=== PATIENT | female | born 1960 | race Caucasian/White ===

== ENCOUNTER 2016-12-24 11:21 | Day surgery (SDC) | payer BC ==
[~2016-12-24] VITALS: Ht 160 cm; Wt 54.8 kg
[2016-12-24] VITALS (8 sets, daily range): BP systolic 140–169; BP diastolic 73–122; PULSE 55–99; TEMP 97.7–98.2
[2016-12-24] MEDS ORDERED: ROXICODONE 55 MG/TAB PO (12:20)
[2016-12-24] MEDS ORDERED: FLOMAX 0.40.4 MG/CAP PO (12:20)
[2016-12-24] MEDS ORDERED: SUDAFED30 MG PO (12:21)
[2016-12-24] MEDS ORDERED: ZOFRAN 4MG T4 MG/TAB PO (12:21)
== END 2016-12-24 17:31 | disposition home or self-care (01) ==
LOC: SDCO 11:21
DX: C24.1 Malignant neoplasm of ampulla of Vater (principal); K83.8 Other specified diseases of biliary tract; K31.9 Disease of stomach and duodenum, unspecified; K83.1 Obstruction of bile duct
CPT/HCPCS: C1769; C2625; J2704; J7030; Q9967

== ENCOUNTER → 2017-01-26 | Outpatient (REF) ==
[~2017-01-26] MED LIST: FLOMAX 0.40.4 MG/CAP PO; ROXICODONE 55 MG/TAB PO; SUDAFED30 MG PO; ZOFRAN 4MG T4 MG/TAB PO
== END ==
LOC: ZAIV 01-25 06:20
DX: Z02.89 Encounter for other administrative examinations (principal)

== ENCOUNTER 2017-01-28 10:00 | Outpatient (RCR) | payer BC ==
[2017-01-24 07:56] VITALS: BP 108/87; PULSE 65; TEMP 98.4
[2017-01-25 09:05] VITALS: BP 108/52; PULSE 56; TEMP 98.1
[~2017-01-28] VITALS: Ht 160 cm; Wt 54.0 kg
[2017-01-28 10:03] VITALS: BP 125/58; PULSE 48
[2017-01-28 10:27] LABS: ADD PATHOLOGY DIFF REVIEW NO
[2017-01-28 10:33] LABS: MEAN CELL VOLUME 92 fl (80.0-100.0); MEAN CORPUSCULAR HGB CONC 33 g/dl (33.0-37.0); MEAN PLATELET VOLUME 10.1 fl (7.4-10.4); PLATELET COUNT 232 K/mm3 (130-400); RED BLOOD COUNT 3.64 M/mm3 (4.10-5.30); WHITE BLOOD COUNT 6.2 K/mm3 (4.8-10.8)
[2017-01-28 10:34] LABS: HEMATOCRIT 33.5 % (37.0-47.0); HEMOGLOBIN 11.1 g/dl (12.5-16.0); MEAN CORPUSCULAR HEMOGLOBIN 30 pg (27.0-31.0)
[2017-01-28 10:47] LABS: ADJUSTED CALCIUM 8.3 mg/dL (8.4-10.2); ALBUMIN 3.7 gm/dL (3.5-5.0); BILIRUBIN,TOTAL 0.6 mg/dL (0.0-1.0); CALCIUM 8.1 mg/dL (8.4-10.2); CREATININE, serum 0.52 mg/dL (0.52-1.25); POTASSIUM 3.1 mmol/L (3.4-5.0); TOTAL PROTEIN 6.3 gm/dL (6.4-8.2)
[2017-01-28 11:03] LABS: BAND 8 % (0-10); LYMPHOCYTE 26 % (20.0-51.0); NEUTROPHILS 65 % (42.0-75.2); PLATELET ESTIMATE NORMAL (NORMAL); TOTAL CELLS COUNTED 100
== END 2017-04-24 ==
LOC: EUO
PROVIDERS: Internal Medicine
DX: C7A.1 Malignant poorly differentiated neuroendocrine tumors (principal); Z95.828 Presence of other vascular implants and grafts
CPT/HCPCS: C1751; J1644

== ENCOUNTER 2018-04-21 21:24 | Emergency (ER) | payer BC ==
[~2018-04-21] VITALS: Ht 157.5 cm; Wt 48.2 kg
[2018-04-21 21:28] VITALS: TEMP 97.1
[2018-04-21 21:56] LABS: BASO % 0.5 % (0.0-2.0); EOS # 0.1 (0.0-0.7); EOS % 0.8 % (0-4.0); GRAN # 5.4 (1.4-6.5); GRAN % 80.6 % (42.2-75.2); LYMPH # 0.8 (1.2-3.4); LYMPH % 11.3 % (20.0-51.0); MEAN CELL VOLUME 92 fl (80.0-100.0); MEAN CORPUSCULAR HEMOGLOBIN 31 pg (27.0-31.0); MEAN CORPUSCULAR HGB CONC 33 g/dl (33.0-37.0); MEAN PLATELET VOLUME 9.7 fl (7.4-10.4); MONO # 0.4 (0.1-0.6); MONO % 6.3 % (1.7-9.3); PLATELET COUNT 287 K/mm3 (130-400); RED BLOOD COUNT 3.61 M/mm3 (4.10-5.30); REDCELL DISTRIBUTION WIDTH-CV 12.7 % (11.5-14.5)
[2018-04-21 22:02] LABS: HEMATOCRIT 33.1 % (37.0-47.0)
[2018-04-21] MEDS ORDERED: [UNRECOGNIZED DRUG - CODE] PO (22:07)
[2018-04-21] MEDS ORDERED: ULTRAM 50MG TAB50 MG PO (22:08)
[2018-04-21] MEDS ORDERED: ANTI-DIARRHEAL2 MG PO (22:09)
[2018-04-21] MEDS ORDERED: FLEXERIL 1010 MG/TAB PO (22:09)
[2018-04-21 22:10] LABS: ALANINE AMINOTRANSFERASE 76 U/L (9-52); ALKALINE PHOSPHATASE 137 U/L (50-136); ANION GAP 9 mmol/L (7-16); AST,SGOT 56 U/L (15-37); BILIRUBIN,TOTAL 0.5 mg/dL (0.0-1.0); BLOOD UREA NITROGEN 9 mg/dL (7-17); CALCIUM 9.2 mg/dL (8.4-10.2); CARBON DIOXIDE 26 mmol/L (22-30); CHLORIDE 105 mmol/L (98-107); CREATININE, serum 0.73 mg/dL (0.52-1.25); GLUCOSE 168 mg/dL (74-106); POTASSIUM 3.9 mmol/L (3.4-5.0); SODIUM 140 mmol/L (137-145); TOTAL PROTEIN 7.2 gm/dL (6.4-8.2)
[2018-04-21] MEDS ORDERED: PRILOSEC10 MG (22:10)
[2018-04-21 22:11] LABS: C-REACTIVE PROTEIN < 0.5 mg/dL (0.0-0.9); LIPASE < 10 U/L (23-300)
[2018-04-21 22:19] LABS: TROPONIN-I < 0.012 ng/mL (0.000-0.034)
[2018-04-21 22:55] LABS: COLLECTION METHOD CLEAN CATCH
[2018-04-21 23:06] LABS: AMORPHOUS CRYSTAL Present /uL; PH 8 (5-8); SQUAMOUS EPITHELIAL None Seen /hpf; URINE APPEARANCE Cloudy; URINE BACTERIA Rare /hpf; URINE BILIRUBIN Negative (NEGATIVE); URINE BLOOD Negative (NEGATIVE); URINE COLOR Yellow; URINE GLUCOSE 2+ (NEGATIVE); URINE KETONE Trace (NEGATIVE); URINE LEUKOCYTE ESTERASE Negative (NEGATIVE); URINE NITRATE Negative (NEGATIVE); URINE PROTEIN(semi-quant) Negative (NEGATIVE); URINE RBC 0-2 /hpf; URINE UROBILINOGEN Negative (NEGATIVE)
[2018-04-21] MEDS ORDERED: PERCOCET 325 MG1 TA2 PO (23:40)
[2018-04-21] MEDS ORDERED: ZOFRAN 4MG T4 MG/TAB PO (23:40)
[2018-04-21] MEDS ORDERED: FLOMAX 0.40.4 MG/CAP PO (23:40)
[2018-04-21 23:50] VITALS: BP 155/90; PULSE 74
== END 2018-04-21 23:50 | disposition home or self-care (01) ==
LOC: COL.ER 21:24
PROVIDERS: Emergency Medicine
DX: N20.2 Calculus of kidney with calculus of ureter (principal); N23 Unspecified renal colic; Z98.890 Other specified postprocedural states
CPT/HCPCS: J2405; J3010; J7030; Q9967